=== PATIENT | male | born 1950 | race Caucasian/White ===

== ENCOUNTER → 2016-09-02 | Outpatient (CLI) | payer MEDICARE, OTHER ==
--- NOTE | ~2016-09-02 | CT57 ---
[facility] A Service of [facility] / [facility] RADIOLOGY TEXT RESULTS PATIENT: ENOCH ALBARADO SR G LOCATION: [facility] : 46 UNIT #: [id number] AGE: [address]: ROXANNE WATSON MD SEX: M ORDER DR: [id number] [address] [id number] O MR#: [id number] Acc #: [id number] NAME: ENOCH ALBARADO : 1950 SEX: M STUDY DATE/TIME: 09/06/2016 UNIT: [facility] ROOM: STUDY DESCRIPTION: CT Chest Wo Cont Attending Physician: Roxanne Watson M.D. Referring Physician: Roxanne Watson M.D. Ordering Physician: Roxanne Watson M.D. Primary Care Physician: Bettye Joseph M.D. MEDICAL IMAGING REPORT This report is preliminary unless electronic signature is present. EXAM CT chest without contrast 09/02/2016 08:20 hours HISTORY 66-year-old man for followup of ascending aortic aneurysm. No current chest complaints. COMPARISON 08/18/2015 and 10/24/2014 TECHNIQUE Helical noncontrasted images were obtained from the thoracic inlet through the adrenal glands. Sagittal and coronal reconstructions were performed. Total exam DLP 920 mGy-cm. The CT exam was performed with one or more of the following radiation dose reduction techniques: automatic exposure control, adjustment of mA and/or kV according to patient size, and iterative reconstruction. FINDINGS Images through the thoracic inlet demonstrate no thyroid lesion or supraclavicular adenopathy. Images through the chest demonstrates stable prominence of the aortic root measuring 4.5 cm previously 4.4 cm. There is fusiform mild dilatation of the ascending aorta measuring 4.2 cm previously 4.1 cm. Aortic arch is stable at 3.8 cm. Proximal descending thoracic aorta measures 3.6 cm previously 3.5 cm. There is no pathologic mediastinal, hilar or axillary adenopathy. There are extensive coronary artery calcifications. Cardiac chambers, pericardium and esophagus are normal. Lung window images demonstrate extensive emphysematous change most STS. [facility] A Service of [facility] / [facility] RADIOLOGY TEXT RESULTS PATIENT: ENOCH ALBARADO SR LOCATION: [facility] : 46 UNIT #: [id number] AGE: [address]: ROXANNE WATSON MD SEX: M ORDER DR: prominent in the upper lobes. There is a stable 3 mm noncalcified nodule right middle lobe unchanged dating back to 10/24/2014. There is mild nodular thickening of the major fissure on the left also unchanged. There are no new or increasing nodules. Limited views through the upper abdomen demonstrate no liver lesion. There is stable low-density thickening of both adrenal glands, likely benign hyperplasia or adenomas. IMPRESSION 1. Dilated aortic root to 4.5 cm previously 4.1 cm. Fusiform dilatation of the ascending aorta measuring up to 4.2 cm previously 4.1 cm. Mild dilatation of the descending thoracic aorta measuring 3.6 cm previously 3.5 cm. 2. Emphysematous changes with stable 3 mm noncalcified nodule in the lingular segment of the left upper lobe unchanged from 10/24/2014 likely benign. Stable nodular thickening of the pleura in major fissure at the left base also unchanged from 10/24/14 likely benign. 3. Thickening and nodularity both adrenal glands unchanged from 10/24/2014. This likely represents either hyperplasia or adenomas. Dictated by... Pilar Zarate M.D. THIS IS AN ELECTRONICALLY VERIFIED REPORT Pilar Zarate M.D. at 09/02/2016 1:34 PM ULYSSES/ruth TD: 09/02/2016 11:27 JOB #: [id number] MEDICAL IMAGING REPORT
== END | disposition home or self-care (01) ==
LOC: SCT 08:04
DX: I71.2 Thoracic aortic aneurysm, without rupture (principal); J43.9 Emphysema, unspecified; R91.1 Solitary pulmonary nodule; J92.9 Pleural plaque without asbestos; E27.8 Other specified disorders of adrenal gland
CPT/HCPCS: 71250